=== PATIENT | female | born 1990 | race Caucasian/White ===

== ENCOUNTER 2016-11-10 10:13 | Day surgery (SDC) | payer SELFPAY ==
[2016-11-03 12:32] VITALS: BMI 29.1
[2016-11-10] MEDS ORDERED: MIDAZOLAM HCL 2 MG/2 ML SINGLE DOSE VIAL ONE (12:06)
[2016-11-10] MEDS ORDERED: ROCURONIUM BROMIDE 50 MG/5 ML VIAL ONE (12:07)
[2016-11-10] MEDS ORDERED: PROPOFOL 20 ML ONE ×10 (12:07→12:40)
[2016-11-10] MEDS ORDERED: LIDOCAINE HCL/PF 2% SDV 5ML VIAL ONE (12:23)
[2016-11-10] MEDS ORDERED: ONDANSETRON 4 MG/2 ML VIAL ONE ×3 (12:29→15:51)
[2016-11-10] MEDS ORDERED: LIDOCAINE 1%-EPI 1:100,000 30 ML MDV IJ ONE (12:38)
[2016-11-10] MEDS ORDERED: LIDOCAINE 1%/EPI 1:100000 (50 ML MULTI DOSE VIAL) INF ONE (14:16)
[2016-11-10] MEDS ORDERED: KETOROLAC TROMETHAMINE 30 MG/1 ML VIAL ONE (14:51)
[2016-11-10] MEDS ORDERED: oxyCODONE HCL 5 MG TABLET PO PRN (15:16)
[2016-11-10] MEDS ORDERED: ONDANSETRON 4 MG/2 ML VIAL IVPUSH PRN (15:22)
[2016-11-10] MEDS ORDERED: PROMETHAZINE HCL 25 MG/1 ML VIAL IVPUSH PRN (15:23)
[2016-11-10] MEDS ORDERED: oxyCODONE HCL 5 MG TABLET PO ONE (16:19)
[2016-11-10 16:50] VITALS: TEMP 98.1
[2016-11-10] MEDS ORDERED: oxyCODONE HCL 5 MG TABLET ONE (16:51)
[2016-11-10 17:00] VITALS: BP 108/69; PULSE 68
--- NOTE | 2016-11-15 15:31 | PATH ---
Surgical Pathology Report Patient Name: MUNIRA LANDAVERDE [facility]. Rec. #: [id number] /Age/Gender: 1990 (Age: 26) / F Account: [id number] Location: [facility] AMBULATORY Taken: 11/10/2016 Received: 11/10/2016 Reported: 11/15/2016 Physicians: Tony Lopez Specimen(s) Received A: RIGHT BREAST SKIN AND TISSUE B: LEFT BREAST SKIN AND TISSUE Clinical History Macromastia Final Diagnosis A. BREAST TISSUE AND SKIN, RIGHT, REDUCTION: BENIGN BREAST TISSUE. SKIN WITH NO PATHOLOGIC FINDINGS. B. BREAST TISSUE AND SKIN, LEFT, REDUCTION: BENIGN BREAST TISSUE. SKIN WITH NO PATHOLOGIC FINDINGS. Electronically Signed Carlota Matos M.D. Gross Description A. Received in formalin labeled "right breast skin and tissue 575 g," is a 20.0 x 13.0 x 5.0 cm aggregate of multiple irregular, unoriented portions of fibroadipose tissue and rodriguez, unremarkable skin. Sectioning reveals abundant dense, white tissue. Soil Expert sections are submitted in 6 cassettes. B. Received in formalin labeled "left breast skin and tissue 630 g," is an 18.5 x 17.0 x 5.0 cm aggregate of multiple irregular, unoriented portions of fibroadipose tissue and rodriguez, unremarkable skin. Sectioning reveals abundant dense, white tissue Soil Expert sections are submitted in 6 cassettes. 11/11/2016 saudi11/11/2016
== END 2016-11-10 17:26 | disposition home or self-care (01) ==
LOC: FASU 10:13
PROVIDERS: ATTEND Plastic Surgery
PROC: 0HBV0ZZ Excision of Bilateral Breast, Open Approach (ICD-10-PCS; principal; 2016-11-10 12:38)
DX: Z41.1 Encounter for cosmetic surgery (principal)
CPT/HCPCS: 84703; 88305-TC; 94760